=== PATIENT | male | born 1990 | race Caucasian/White ===

== ENCOUNTER 2017-04-14 21:28 | Emergency (ER) | payer OTHER | END 2017-04-14 23:56 | disposition home or self-care (01) | LOC: FER 21:28 | DX: S60.011A Contusion of right thumb without damage to nail, initial encounter (principal); W30.89XA Contact with other specified agricultural machinery, initial encounter; Y92.69 Other specified industrial and construction area as the place of occurrence of the external cause; Y99.0 Civilian activity done for income or pay | CPT/HCPCS: 73140; 99283 ==

== ENCOUNTER 2022-08-22 20:08 | Emergency (ER) | payer OTHER ==
[~2022-08-22 20:08] MED LIST: IBUPROFEN800 MG PO
== END 2022-08-22 23:00 | disposition home or self-care (01) ==
LOC: FER 20:08
DX: S05.02XA Injury of conjunctiva and corneal abrasion without foreign body, left eye, initial encounter (principal); Z28.310 Unvaccinated for COVID-19; W22.8XXA Striking against or struck by other objects, initial encounter
CPT/HCPCS: 70480